=== PATIENT | female | born 1955 | race Caucasian/White ===

== ENCOUNTER 2018-12-11 11:27 | Observation (INO) | payer OTHER ==
[~2018-12-11] VITALS: Ht 154.9 cm; Wt 73.5 kg
[~2018-12-11 11:27] MED LIST: Adult Low Dose81 MG PO; INSULANPEN SC; METF500 PO; Novolog Fl100 UNIT/1 INJ; Novolog Fl100 UNIT/1 SC
[2018-12-11] MEDS ORDERED: LISI5 PO (12:04)
[2018-12-11] MEDS ORDERED: GLIP5 PO (12:04)
[2018-12-11 12:23] LABS: BASOPHILS ABSOLUTE AUTO 0.02 K/mm3 (0.00-0.23); BASOPHILS PERCENT AUTO 0 % (0-2); EOSINOPHILS ABSOLUTE AUTO 0.08 K/mm3 (0.00-0.68); EOSINOPHILS PERCENT AUTO 1 % (0-6); Hematocrit 39.9 % (33.0-51.0); Hemoglobin 12.9 g/dL (11.5-16.0); IMMATURE GRAN ABSOLUTE AUTO 0.03 K/mm3 (0.00-0.10); IMMATURE GRAN PERCENT AUTO 0 % (0-1); LYMPHOCYTES ABSOLUTE AUTO 3.54 K/mm3 (0.84-5.20); LYMPHOCYTES PERCENT AUTO 35 % (21-46); MONOCYTES PERCENT AUTO 3 % (4-13); Mean Corpuscular HGB 28.2 pg (26.0-34.0); Mean Corpuscular HGB Conc 32.3 g/dL (31.5-36.5); Mean Corpuscular Volume 87 fL (80-100); Mean Platelet Volume 9.1 fL (9.1-12.4); NEUTROPHILS ABSOLUTE AUTO 6.12 K/mm3 (1.96-9.15); NEUTROPHILS PERCENT AUTO 61 % (41-73); Platelet Count 378 K/mm3 (150-400); RDW Coefficient Variation 13.3 % (11.7-14.2); RDW Standard Deviation 42.4 fL (35.1-46.3); Red Blood Cell Count 4.57 M/mm3 (3.80-5.20); White Blood Cell Count 10.09 K/mm3 (4.00-11.30)
[2018-12-11 13:03] LABS: Alanine Aminotransfer (ALT/SGP 25 U/L (12-78); Albumin, Blood 4.1 g/dL (3.4-5.0); Alk Phos 71 U/L (50-136); Anion Gap 11 mmol/L (6-16); Aspartate Aminotrans (AST/SGOT 18 U/L (12-37); Bilirubin, Total 0.7 mg/dL (0.1-1.0); Blood Urea Nitrogen 18 mg/dL (8-24); Bun/Creatinine Ratio 24.3 (12.0-20.0); CO2, Blood 21 mmol/L (21-32); Calcium, Blood 9.2 mg/dL (8.5-10.1); Chloride, Blood 109 mmol/L (98-108); Creatinine, Blood 0.74 mg/dL (0.40-1.00); Glomerular Filtration Rate >60 (60-); Glucose, Blood 178 mg/dL (70-99); Potassium, Blood 3.8 mmol/L (3.5-5.5); Sodium, Blood 141 mmol/L (136-145); Total Protein, Blood 8.1 g/dL (6.4-8.2)
--- NOTE | 2018-12-11 17:10 | NUR ---
12/11/18 [id number] Sher[address] Wyatt History, Chart, Medications and Allergies reviewed before start of procedure.MONITOR INTACT WITH CONTINUOUS PULSE OXIMETRY AND INTERMITTENT BP.3-LEAD EKG REVIEWED WITH PHYSICIAN PRIOR TO START OF PROCEDURE.O2 VIA N/C INTACT THROUGHOUT SEDATION/PROCEDURE. Patient confirms NPO status and agrees with scheduled surgery.See Anesthesia record.
--- NOTE | 2018-12-11 17:59 | NUR ---
PT IS GOING TO BE ADMITTED SINCE PT STATES SHE CANNOT SWALLOW ANY LIQUIDS. DR CHATMAN HAS SEEN PT AND WANTS PT TO BE ADMITTED. PT WILL BE GOING TO 230. WAITING TO GIVE FLOOR RN REPORT. VSS. PT HAS NO COMPLAINTS AT THIS TIME.
--- NOTE | 2018-12-11 18:20 | NUR ---
REPORT GIVEN TO BRIGIDO TUCKER. SHE WILL ASSUME CARE OF PT.
--- NOTE | 2018-12-11 18:33 | NUR ---
REPORT FROM SHANIQUA TUCKER. PT SAT SELF UP IN BED TO DRINK WATER W/O DIFF. PT REPORT RADHA PAREKH RN SURG FLOOR. WILL TRANSPORT PT AND ALL BELONGIGNS WITH PT TO ROOM.
--- NOTE | 2018-12-11 18:34 | NUR ---
RN gave this student nurse permission to care for this patient tomorrow morning.
--- NOTE | 2018-12-11 22:33 | NUR ---
REPORT GIVEN TO NEXT RN. PT IS A&OX4. DENIES N/V. TOLERATED ICE WATER. ADVANCED TO CL BROTH; TOLERATED WELL. SHE DENIES PAIN AND REPORTS IMPROVEMENT IN SWALLOWING SINCE THIS MORNING. VSS.
--- NOTE | 2018-12-12 04:51 | NUR ---
DID WELL DURING NIGHT. DENIES ANY C/O. MAINTAINS AIRWAY, SWALLOWING WELL. IS UP AMBULATING INDEPENDENLTY. CONT IVF WITH IV PROTONIX. DR. CHATMAN STATES IN PROGRESS NOTE THAT PT WILL NEED REPEAT EGD IN 8-12 WEEKS WITH POSSIBLE DILATION AND REPEAT BIOPSIES. PROBABLE DC HOME TODAY, CALL LIGHT IN REACH.
--- NOTE | 2018-12-12 10:32 | NUR ---
DISCHARGE PT EDUCATED ON AND RECEIVED PRINTED DC INSTRUCTIONS. PT VERB AN UNDERSTANDING AND STATED SHE WOULD CALL DR. CHATMAN'S OFFICE FOR FOLLOW UP AND TO SCHEDULE REPEAT ENDOSCOPY. NO NEW RX. IV DC'D. PT GATHERING ALL PERSONAL BELONGINGS AND WAITING FOR TO COME PICK HER UP.
--- NOTE | 2018-12-12 10:54 | NUR ---
Spiritual care visit conducted. Patient was in the process of checking out as I entered the room. I introduced myself and patient welcomed me into the room. Patient said that "things" went well and that the doctors and nurses were wonderful and did an amazing job. Patient had no spiritual or emotional needs but appreciated the visit and the conversation.
== END 2018-12-12 11:01 | disposition home or self-care (01) ==
LOC: ER 11:27 → SURS 11:28
PROVIDERS: Emergency Medicine; ADMIT Internal Medicine
PROC: 0DB48ZX Excision of Esophagogastric Junction, Via Natural or Artificial Opening Endoscopic, Diagnostic (ICD-10-PCS; principal; 2018-12-12)
DX: K20.9 Esophagitis, unspecified (principal); K22.2 Esophageal obstruction; K25.9 Gastric ulcer, unspecified as acute or chronic, without hemorrhage or perforation; K29.80 Duodenitis without bleeding; R23.4 Changes in skin texture; I10 Essential (primary) hypertension; E04.1 Nontoxic single thyroid nodule; E11.9 Type 2 diabetes mellitus without complications; Z79.84 Long term (current) use of oral hypoglycemic drugs; Z79.82 Long term (current) use of aspirin
CPT/HCPCS: 36415; 70491; 80053; 82947; 84443; 85025; 88305; 88312; 96361; 96374; 96375; 99285-25; C9113; G0378; J1610; J2250; J2405; J7030; J7120; Q9967

== ENCOUNTER 2019-03-05 09:09 | Day surgery (SDC) | payer OTHER ==
[~2019-03-05] VITALS: Ht 154.9 cm; Wt 72.8 kg
[~2019-03-05 09:09] MED LIST changes: +ATOR10 PO; +GLIP10 PO; +GLIP5 PO; +GLIP5ER PO; +Glucophage1000 MG PO; +LISI5 PO; +OMEPRAZOLE MAGN20 MG PO
== END 2019-03-05 11:08 | disposition home or self-care (01) ==
LOC: ORSCSDS 09:09
PROVIDERS: Internal Medicine Gastroenterology
PROC: 0DB68ZX Excision of Stomach, Via Natural or Artificial Opening Endoscopic, Diagnostic (ICD-10-PCS; principal; 2019-03-05 11:00)
DX: K27.9 Peptic ulcer, site unspecified, unspecified as acute or chronic, without hemorrhage or perforation (principal); R13.10 Dysphagia, unspecified; K21.9 Gastro-esophageal reflux disease without esophagitis; K22.2 Esophageal obstruction; I10 Essential (primary) hypertension; K44.9 Diaphragmatic hernia without obstruction or gangrene; E11.9 Type 2 diabetes mellitus without complications; Z79.899 Other long term (current) drug therapy; Z79.82 Long term (current) use of aspirin
CPT/HCPCS: 82947; 88305; 88342; J2704; J7120

== ENCOUNTER 2019-05-18 20:27 | Emergency (ER) | payer OTHER, SELFPAY ==
[~2019-05-18] VITALS: Ht 154.9 cm; Wt 73.5 kg
[2019-05-18] MEDS ORDERED: CRUTCH2 XX (22:42)
[2019-06-24] MEDS ORDERED: Voltaren100 GM TOP (15:57)
[2019-06-24] MEDS ORDERED: ASPI81CH PO (15:58)
[2019-06-24] MEDS ORDERED: THERA1 EACH PO (15:58)
[2019-06-24] MEDS ORDERED: Vitamin C100 M1 PO (15:58)
== END 2019-05-18 22:58 | disposition home or self-care (01) ==
LOC: ER 20:27
DX: S82.831A Other fracture of upper and lower end of right fibula, initial encounter for closed fracture (principal); E11.40 Type 2 diabetes mellitus with diabetic neuropathy, unspecified; Z79.899 Other long term (current) drug therapy; W18.30XA Fall on same level, unspecified, initial encounter
CPT/HCPCS: 29515; 73610; 99283-25; A9270

== ENCOUNTER 2019-06-27 05:50 | Day surgery (SDC) | payer OTHER, SELFPAY ==
[~2019-06-27] VITALS: Ht 157.5 cm; Wt 70.8 kg
[~2019-06-27 05:50] MED LIST changes: +ASPI81CH PO; +CRUTCH2 XX; +THERA1 EACH PO; +Vitamin C100 M1 PO; +Voltaren100 GM TOP
--- NOTE | 2019-06-27 06:54 | NUR ---
Ambulatory in Day Surgery History, Chart, Medications and Allergies reviewed before start of procedure.Patient confirms NPO status and agrees with scheduled surgery. Patient reports completing Chlorhexadine shower X2 prior to admission to hospital.Surgical site prepped with 2% Chlorhexidine cloth wipe. Lungs clear T/O to Auscultation.
--- NOTE | 2019-06-27 08:49 | NUR ---
Discharge instructions reviewed with patient. Patient verbalizes understanding. Copy given to patient to take home. ICE PACK GIVEN FOR PT TO USE ON WRIST. PT STATES NO PAIN, AREA STILL NUMB, ABLE TO WIGGLE FINGERS, SLIGHT SWELLING. MICHAEL WRAP IN PLACE. RIDE HOME CALLED. Discharged via wheelchair to private car for ride home.
--- NOTE | 2019-06-28 16:43 | NUR ---
06/28/19 1643 Corinne Mckeon VERIFICATIONS.
== END 2019-06-27 22:44 | disposition home or self-care (01) ==
LOC: ORSCMMR 05:50 → ORD 07:30 → ORSCMMR 22:44
PROVIDERS: Orthopaedic Surgery
PROC: 0LN80ZZ Release Left Hand Tendon, Open Approach (ICD-10-PCS; principal; 2019-06-27 07:30)
DX: M65.332 Trigger finger, left middle finger (principal); I10 Essential (primary) hypertension; E11.9 Type 2 diabetes mellitus without complications; Z79.899 Other long term (current) drug therapy; Z79.82 Long term (current) use of aspirin
CPT/HCPCS: 82947; J0690; J1885; J2370; J2405; J2704; J3010; J7120

== ENCOUNTER 2020-02-22 11:24 | Emergency (ER) | payer MEDICARE ==
[~2020-02-22] VITALS: Ht 154.9 cm; Wt 68.0 kg
[2020-02-22 12:06] LABS: Source, Urine Clean Catch
[2020-02-22 12:10] LABS: Bilirubin, Urine Neg (Neg); Blood, Urine Neg (Neg); Glucose Qualitative, Urine Neg (Neg); Ketones, Urine 4+ (Neg); Leukocyte Esterase, Urine 1+ (Neg); Nitrite, Urine Neg (Neg); Protein, Urine 1+ (Neg); Specific Gravity, Urine 1.015 (1.003-1.022); Urobilinogen, Urine NORM (Normal)
[2020-02-22] MEDS ORDERED: OMEP20ER PO (12:11)
[2020-02-22 12:13] LABS: BASOPHILS ABSOLUTE AUTO 0.05 K/mm3 (0.00-0.23); BASOPHILS PERCENT AUTO 0 % (0-2); EOSINOPHILS ABSOLUTE AUTO 0.03 K/mm3 (0.00-0.68); EOSINOPHILS PERCENT AUTO 0 % (0-6); Hemoglobin 13.1 g/dL (11.5-16.0); IMMATURE GRAN ABSOLUTE AUTO 0.06 K/mm3 (0.00-0.10); IMMATURE GRAN PERCENT AUTO 0 % (0-1); LYMPHOCYTES PERCENT AUTO 25 % (21-46); MONOCYTES ABSOLUTE AUTO 0.34 K/mm3 (0.16-1.47); MONOCYTES PERCENT AUTO 2 % (4-13); Mean Corpuscular HGB 28.9 pg (26.0-34.0); Mean Corpuscular HGB Conc 33.6 g/dL (31.5-36.5); Mean Corpuscular Volume 86 fL (80-100); Mean Platelet Volume 9.2 fL (9.1-12.4); NEUTROPHILS ABSOLUTE AUTO 10.29 K/mm3 (1.96-9.15); NEUTROPHILS PERCENT AUTO 72 % (41-73); Platelet Count 415 K/mm3 (150-400); RDW Coefficient Variation 12.8 % (11.7-14.2); RDW Standard Deviation 40.6 fL (35.1-46.3); Red Blood Cell Count 4.53 M/mm3 (3.80-5.20); White Blood Cell Count 14.27 K/mm3 (4.00-11.30)
[2020-02-22 12:15] LABS: Appearance, Urine Clear (Clear); Color, Urine Yellow (P-Yellow)
[2020-02-22 12:20] LABS: Bacteria Few /hpf; Mucus Light (0-Heavy); Red Blood Cells, Urine 0-2 /hpf (0-2); Squamous Epithelial Cells Few /hpf (Few); White Blood Cells, Urine 0-2 /hpf (0-5)
[2020-02-22 12:34] LABS: Alanine Aminotransfer (ALT/SGP 22 U/L (12-78); Albumin, Blood 4.3 g/dL (3.4-5.0); Albumin/Globulin Ratio 1.1 (0.8-1.8); Alk Phos 79 U/L (50-136); Anion Gap 14 mmol/L (6-16); Aspartate Aminotrans (AST/SGOT 23 U/L (12-37); Bilirubin, Total 0.6 mg/dL (0.1-1.0); Blood Urea Nitrogen 15 mg/dL (8-24); CO2, Blood 19 mmol/L (21-32); Calcium, Blood 9.8 mg/dL (8.5-10.1); Chloride, Blood 107 mmol/L (98-108); Creatinine, Blood 0.71 mg/dL (0.40-1.00); Glomerular Filtration Rate >60 (60-); Glucose, Blood 230 mg/dL (70-99); Potassium, Blood 3.3 mmol/L (3.5-5.5); Sodium, Blood 140 mmol/L (136-145); Total Protein, Blood 8.3 g/dL (6.4-8.2)
[2020-02-22] MEDS ORDERED: ONDA4ODT MM (14:34)
== END 2020-02-22 14:42 | disposition home or self-care (01) ==
LOC: ER 11:24
PROVIDERS: Emergency Medicine
DX: K52.9 Noninfective gastroenteritis and colitis, unspecified (principal)
CPT/HCPCS: 36415; 80053; 81001; 83690; 85025; 87086; 93005; 93010; 96361; 96374; 99284-25; J2405; J7030

== ENCOUNTER 2020-10-06 10:22 | Emergency (ER) | payer MEDICARE ==
[~2020-10-06] VITALS: Ht 154.9 cm; Wt 68.0 kg
[~2020-10-06 10:22] MED LIST changes: +OMEP20ER PO; +ONDA4ODT MM
[2020-10-06] MEDS ORDERED: ATOR10 (11:01)
[2020-10-06 11:23] LABS: Base Excess Venous -5.2 mmol/L; Bicarbonate Venous 20.9 mmol/L (24.0-30.0); PCO2 Venous 28.4 mmHg (38-42); PO2 Venous 50.7 mmHg (38-42); pH Blood Venous 7.44 (7.34-7.37)
[2020-10-06 11:33] LABS: BASOPHILS ABSOLUTE AUTO 0.06 K/mm3 (0.00-0.23); BASOPHILS PERCENT AUTO 0 % (0-2); EOSINOPHILS ABSOLUTE AUTO 0.06 K/mm3 (0.00-0.68); EOSINOPHILS PERCENT AUTO 0 % (0-6); Hematocrit 36.9 % (33.0-51.0); Hemoglobin 12.1 g/dL (11.5-16.0); IMMATURE GRAN ABSOLUTE AUTO 0.05 K/mm3 (0.00-0.10); IMMATURE GRAN PERCENT AUTO 0 % (0-1); LYMPHOCYTES ABSOLUTE AUTO 2.52 K/mm3 (0.84-5.20); LYMPHOCYTES PERCENT AUTO 19 % (21-46); MONOCYTES ABSOLUTE AUTO 0.42 K/mm3 (0.16-1.47); MONOCYTES PERCENT AUTO 3 % (4-13); Mean Corpuscular HGB 28.8 pg (26.0-34.0); Mean Corpuscular HGB Conc 32.8 g/dL (31.5-36.5); Mean Corpuscular Volume 88 fL (80-100); Mean Platelet Volume 9.7 fL (9.1-12.4); NEUTROPHILS ABSOLUTE AUTO 10.49 K/mm3 (1.96-9.15); NEUTROPHILS PERCENT AUTO 77 % (41-73); Platelet Count 353 K/mm3 (150-400); RDW Coefficient Variation 13.2 % (11.7-14.2); RDW Standard Deviation 42.4 fL (35.1-46.3)
[2020-10-06 12:01] LABS: Alanine Aminotransfer (ALT/SGP 41 U/L (12-78); Albumin, Blood 4.1 g/dL (3.4-5.0); Albumin/Globulin Ratio 1.1 (0.8-1.8); Alk Phos 97 U/L (50-136); Anion Gap 13 mmol/L (6-16); Aspartate Aminotrans (AST/SGOT 39 U/L (12-37); Bilirubin, Total 1.4 mg/dL (0.1-1.0); Blood Urea Nitrogen 23 mg/dL (8-24); CO2, Blood 19 mmol/L (21-32); Calcium, Blood 9.6 mg/dL (8.5-10.1); Chloride, Blood 111 mmol/L (98-108); Creatinine, Blood 0.66 mg/dL (0.40-1.00); Globulin, Blood 3.8 g/dL (2.2-4.0); Glomerular Filtration Rate >60 (60-); Glucose, Blood 263 mg/dL (70-99); Potassium, Blood 3.3 mmol/L (3.5-5.5); Sodium, Blood 143 mmol/L (136-145); Total Protein, Blood 7.9 g/dL (6.4-8.2); Troponin I <0.015 ng/mL (0.000-0.040)
[2020-10-06] MEDS ORDERED: ONDA4ODT MM (13:30)
== END 2020-10-06 14:36 | disposition home or self-care (01) ==
LOC: ER 10:22
PROVIDERS: Emergency Medicine; Physician Assistant
DX: R11.2 Nausea with vomiting, unspecified (principal); R10.9 Unspecified abdominal pain; E86.0 Dehydration; Z20.828 Contact with and (suspected) exposure to other viral communicable diseases; Z79.899 Other long term (current) drug therapy; Z79.82 Long term (current) use of aspirin; Z79.84 Long term (current) use of oral hypoglycemic drugs
CPT/HCPCS: 36415; 71045; 80053; 82803; 82947; 84484; 85025; 93005; 93010; 96361; 96374; 99284-25; J2405; J7030; U0004

== ENCOUNTER 2021-02-15 08:42 | Emergency (ER) | payer MEDICARE ==
[~2021-02-15] VITALS: Ht 154.9 cm; Wt 68.0 kg
[~2021-02-15 08:42] MED LIST changes: +ATOR10
[2021-02-15 09:20] LABS: Source, Urine Clean Catch
[2021-02-15 09:29] LABS: BASOPHILS ABSOLUTE AUTO 0.05 K/mm3 (0.00-0.23); BASOPHILS PERCENT AUTO 0 % (0-2); EOSINOPHILS ABSOLUTE AUTO 0.05 K/mm3 (0.00-0.68); EOSINOPHILS PERCENT AUTO 0 % (0-6); Hematocrit 36.6 % (33.0-51.0); Hemoglobin 12.4 g/dL (11.5-16.0); IMMATURE GRAN ABSOLUTE AUTO 0.04 K/mm3 (0.00-0.10); IMMATURE GRAN PERCENT AUTO 0 % (0-1); LYMPHOCYTES PERCENT AUTO 21 % (21-46); MONOCYTES ABSOLUTE AUTO 0.31 K/mm3 (0.16-1.47); MONOCYTES PERCENT AUTO 3 % (4-13); Mean Corpuscular HGB 29.1 pg (26.0-34.0); Mean Corpuscular HGB Conc 33.9 g/dL (31.5-36.5); Mean Corpuscular Volume 86 fL (80-100); NEUTROPHILS ABSOLUTE AUTO 8.34 K/mm3 (1.96-9.15); NEUTROPHILS PERCENT AUTO 75 % (41-73); Platelet Count 319 K/mm3 (150-400); RDW Coefficient Variation 13.2 % (11.7-14.2); RDW Standard Deviation 41.3 fL (35.1-46.3); Red Blood Cell Count 4.26 M/mm3 (3.80-5.20); White Blood Cell Count 11.19 K/mm3 (4.00-11.30)
[2021-02-15 09:32] LABS: Appearance, Urine Hazy (Clear); Bilirubin, Urine Neg (Neg); Blood, Urine 1+ (Neg); Color, Urine Yellow (P-Yellow); Glucose Qualitative, Urine 3+ (Neg); Ketones, Urine 4+ (Neg); Leukocyte Esterase, Urine 3+ (Neg); Nitrite, Urine Pos (Neg); Protein, Urine 2+ (Neg); Urobilinogen, Urine NORM (Normal)
[2021-02-15 09:46] LABS: Alanine Aminotransfer (ALT/SGP 38 U/L (12-78); Albumin, Blood 4.1 g/dL (3.4-5.0); Albumin/Globulin Ratio 1.2 (0.8-1.8); Alk Phos 75 U/L (50-136); Anion Gap 15 mmol/L (6-16); Aspartate Aminotrans (AST/SGOT 23 U/L (12-37); Bilirubin, Total 0.9 mg/dL (0.1-1.0); Blood Urea Nitrogen 17 mg/dL (8-24); Bun/Creatinine Ratio 28.5 (12.0-20.0); CO2, Blood 19 mmol/L (21-32); Calcium, Blood 9.6 mg/dL (8.5-10.1); Chloride, Blood 108 mmol/L (98-108); Globulin, Blood 3.5 g/dL (2.2-4.0); Glomerular Filtration Rate >60 (60-); Glucose, Blood 282 mg/dL (70-99); Potassium, Blood 3.7 mmol/L (3.5-5.5); Sodium, Blood 142 mmol/L (136-145); Total Protein, Blood 7.6 g/dL (6.4-8.2)
[2021-02-15 09:49] LABS: Red Blood Cells, Urine 0-2 /hpf (0-2)
[2021-02-15 09:50] LABS: Bacteria Many /hpf; Squamous Epithelial Cells Mod /hpf (Few)
[2021-02-15] MEDS ORDERED: Macrobid 100 M100 MG PO (10:50)
[2021-02-15] MEDS ORDERED: METO5A PO (10:50)
[2021-02-15] MEDS ORDERED: Norco 5-325 Ta1 EACH PO (15:37)
== END 2021-02-15 11:01 | disposition home or self-care (01) ==
LOC: ER 08:42
PROVIDERS: Emergency Medicine
DX: N39.0 Urinary tract infection, site not specified (principal); R19.7 Diarrhea, unspecified; Z79.84 Long term (current) use of oral hypoglycemic drugs; Z79.82 Long term (current) use of aspirin
CPT/HCPCS: 36415; 74177; 80053; 81001; 83690; 85025; 87077; 87086; 87186; 96374-59; 96375; 99284-25; J1885; J2405; J2550; Q9967

== ENCOUNTER 2021-02-17 08:33 | Emergency (ER) | payer MEDICARE ==
[~2021-02-17] VITALS: Ht 154.9 cm; Wt 68.0 kg
[~2021-02-17 08:33] MED LIST changes: +METO5A PO; +Macrobid 100 M100 MG PO; +Norco 5-325 Ta1 EACH PO
[2021-02-17 09:45] LABS: BASOPHILS ABSOLUTE AUTO 0.03 K/mm3 (0.00-0.23); BASOPHILS PERCENT AUTO 0 % (0-2); EOSINOPHILS ABSOLUTE AUTO 0.01 K/mm3 (0.00-0.68); EOSINOPHILS PERCENT AUTO 0 % (0-6); Hemoglobin 12.8 g/dL (11.5-16.0); IMMATURE GRAN ABSOLUTE AUTO 0.03 K/mm3 (0.00-0.10); IMMATURE GRAN PERCENT AUTO 0 % (0-1); LYMPHOCYTES PERCENT AUTO 18 % (21-46); MONOCYTES ABSOLUTE AUTO 0.33 K/mm3 (0.16-1.47); MONOCYTES PERCENT AUTO 3 % (4-13); Mean Corpuscular HGB 29.2 pg (26.0-34.0); Mean Corpuscular HGB Conc 33.7 g/dL (31.5-36.5); Mean Corpuscular Volume 87 fL (80-100); Mean Platelet Volume 9.8 fL (9.1-12.4); NEUTROPHILS ABSOLUTE AUTO 7.56 K/mm3 (1.96-9.15); NEUTROPHILS PERCENT AUTO 78 % (41-73); Platelet Count 314 K/mm3 (150-400); RDW Coefficient Variation 13.2 % (11.7-14.2); RDW Standard Deviation 42.2 fL (35.1-46.3); Red Blood Cell Count 4.38 M/mm3 (3.80-5.20); White Blood Cell Count 9.66 K/mm3 (4.00-11.30)
[2021-02-17 09:46] LABS: Alanine Aminotransfer (ALT/SGP 40 U/L (12-78); Albumin, Blood 4.2 g/dL (3.4-5.0); Albumin/Globulin Ratio 1.1 (0.8-1.8); Alk Phos 76 U/L (50-136); Anion Gap 13 mmol/L (6-16); Aspartate Aminotrans (AST/SGOT 27 U/L (12-37); Bilirubin, Total 1.1 mg/dL (0.1-1.0); Blood Urea Nitrogen 21 mg/dL (8-24); Bun/Creatinine Ratio 33.2 (12.0-20.0); CO2, Blood 19 mmol/L (21-32); Calcium, Blood 9.8 mg/dL (8.5-10.1); Chloride, Blood 106 mmol/L (98-108); Creatinine, Blood 0.63 mg/dL (0.40-1.00); Globulin, Blood 3.7 g/dL (2.2-4.0); Glomerular Filtration Rate >60 (60-); Glucose, Blood 272 mg/dL (70-99); Potassium, Blood 3.8 mmol/L (3.5-5.5); Sodium, Blood 138 mmol/L (136-145); Total Protein, Blood 7.9 g/dL (6.4-8.2)
[2021-02-17 11:01] LABS: Magnesium, Blood 1.6 mg/dL (1.6-2.4); Thyroid Stimulating Hormone 2.1 uIU/mL (0.360-4.800)
[2021-02-17 12:16] LABS: Influenza A, PCR NEGATIVE (NEGATIVE); Influenza B, PCR NEGATIVE (NEGATIVE); Resp Syncytial Virus, PCR NEGATIVE (NEGATIVE); SARS-Cov-2 (COVID-19) PCR, MMC NEGATIVE (NEGATIVE)
[2021-02-17] MEDS ORDERED: ONDA4ODT SL ×2 (13:59→14:05)
[2021-02-17] MEDS ORDERED: PHENERGAN25 MG PR ×2 (14:00→14:05)
== END 2021-02-17 14:57 | disposition home or self-care (01) ==
LOC: ER 08:33
PROVIDERS: Emergency Medicine
DX: N39.0 Urinary tract infection, site not specified (principal); R19.7 Diarrhea, unspecified; E11.9 Type 2 diabetes mellitus without complications; Z79.899 Other long term (current) drug therapy; Z79.84 Long term (current) use of oral hypoglycemic drugs
CPT/HCPCS: 0241U; 36415; 80053; 83690; 83735; 84443; 84484; 85025; 93005; 93010; 96361; 96365; 96375; 99284-25; J0696; J1200; J2765; J7030; J7120

== ENCOUNTER → 2022-03-17 | Outpatient (CLI) | payer MEDICARE ==
[~2022-03-17] MED LIST changes: +ONDA4ODT SL; +PHENERGAN25 MG PR
== END | disposition home or self-care (01) ==
LOC: LAB SHORT 11:42 → LAB 11:42
DX: N39.0 Urinary tract infection, site not specified (principal)
CPT/HCPCS: 87077; 87086; 87186

== ENCOUNTER 2022-10-12 09:51 | Emergency (ER) | payer MEDICARE ==
[~2022-10-12] VITALS: Ht 154.9 cm; Wt 64.0 kg
[2022-10-12 11:23] LABS: BASOPHILS ABSOLUTE AUTO 0.02 K/mm3 (0.00-0.23); BASOPHILS PERCENT AUTO 0 % (0-2); EOSINOPHILS ABSOLUTE AUTO 0.07 K/mm3 (0.00-0.68); EOSINOPHILS PERCENT AUTO 1 % (0-6); Hematocrit 41.3 % (33.0-51.0); Hemoglobin 14.2 g/dL (11.5-16.0); IMMATURE GRAN ABSOLUTE AUTO 0.07 K/mm3 (0.00-0.10); IMMATURE GRAN PERCENT AUTO 1 % (0-1); LYMPHOCYTES ABSOLUTE AUTO 2.62 K/mm3 (0.84-5.20); LYMPHOCYTES PERCENT AUTO 17 % (21-46); MONOCYTES ABSOLUTE AUTO 0.82 K/mm3 (0.16-1.47); MONOCYTES PERCENT AUTO 5 % (4-13); Mean Corpuscular HGB 28.1 pg (26.0-34.0); Mean Corpuscular HGB Conc 34.4 g/dL (31.5-36.5); Mean Corpuscular Volume 82 fL (80-100); Mean Platelet Volume 9.6 fL (9.1-12.4); NEUTROPHILS ABSOLUTE AUTO 11.93 K/mm3 (1.96-9.15); NEUTROPHILS PERCENT AUTO 77 % (41-73); Platelet Count 394 K/mm3 (150-400); RDW Coefficient Variation 13.9 % (11.7-14.2); RDW Standard Deviation 41.2 fL (35.1-46.3); Red Blood Cell Count 5.06 M/mm3 (3.80-5.20); White Blood Cell Count 15.53 K/mm3 (4.00-11.30)
[2022-10-12 11:32] LABS: Albumin, Blood 4.3 g/dL (3.4-5.0); Bilirubin, Direct 0.4 mg/dL (0.0-0.3); Bilirubin, Total 1.4 mg/dL (0.1-1.0); Bun/Creatinine Ratio 39.9 (12.0-20.0); Calcium, Blood 10.1 mg/dL (8.5-10.1); Creatinine, Blood 0.73 mg/dL (0.40-1.00); Globulin, Blood 4.3 g/dL (2.2-4.0); Magnesium, Blood 1.9 mg/dL (1.6-2.4); Potassium, Blood 2.9 mmol/L (3.5-5.5); Total Protein, Blood 8.6 g/dL (6.4-8.2)
[2022-10-12 12:28] LABS: Influenza A, PCR NEGATIVE (NEGATIVE); Influenza B, PCR NEGATIVE (NEGATIVE); Resp Syncytial Virus, PCR NEGATIVE (NEGATIVE); SARS-Cov-2 (COVID-19) PCR, MMC NEGATIVE (NEGATIVE)
[2022-10-12] MEDS ORDERED: ONDA4ODT MM (14:16)
[2022-10-12 14:55] LABS: Source, Urine Clean Catch
[2022-10-12 15:00] LABS: Appearance, Urine Clear (Clear); Bilirubin, Urine Neg (Neg); Blood, Urine 1+ (Neg); Color, Urine Yellow (P-Yellow); Glucose Qualitative, Urine 2+ (Neg); Ketones, Urine 4+ (Neg); Leukocyte Esterase, Urine Neg (Neg); Nitrite, Urine Neg (Neg); Protein, Urine 1+ (Neg); Urobilinogen, Urine NORM (Normal)
[2022-10-12 15:24] LABS: White Blood Cells, Urine 0-2 /hpf (0-5)
[2022-10-12 15:25] LABS: Bacteria Rare /hpf; Hyaline Casts 0-2 /lpf (0-2); Squamous Epithelial Cells Few /hpf (Few)
== END 2022-10-12 15:22 | disposition home or self-care (01) ==
LOC: ER 09:51
PROVIDERS: Student in an Organized Health Care Education/Training Program
DX: R11.2 Nausea with vomiting, unspecified (principal); E87.6 Hypokalemia; E11.9 Type 2 diabetes mellitus without complications; Z79.82 Long term (current) use of aspirin; Z79.899 Other long term (current) drug therapy; Z79.84 Long term (current) use of oral hypoglycemic drugs
CPT/HCPCS: 0241U; 74177; 80048; 80076; 81001; 83690; 83735; 85025; 93005; 93010; A9270; J2405; J3475; J3480; J7030; J7050; J7120; Q9967

== ENCOUNTER 2023-07-18 14:53 | Emergency (ER) | payer OTHER ==
[~2023-07-18] VITALS: Ht 154.9 cm; Wt 61.2 kg
[2023-07-18 14:57] VITALS: BP 154/99
[2023-07-18 15:21] LABS: BASOPHILS ABSOLUTE AUTO 0.03 K/mm3 (0.00-0.23); BASOPHILS PERCENT AUTO 0 % (0-2); EOSINOPHILS ABSOLUTE AUTO 0.08 K/mm3 (0.00-0.68); EOSINOPHILS PERCENT AUTO 1 % (0-6); Hematocrit 40.4 % (33.0-51.0); Hemoglobin 13.8 g/dL (11.5-16.0); IMMATURE GRAN ABSOLUTE AUTO 0.02 K/mm3 (0.00-0.10); IMMATURE GRAN PERCENT AUTO 0 % (0-1); LYMPHOCYTES ABSOLUTE AUTO 4.99 K/mm3 (0.84-5.20); LYMPHOCYTES PERCENT AUTO 43 % (21-46); MONOCYTES ABSOLUTE AUTO 0.57 K/mm3 (0.16-1.47); MONOCYTES PERCENT AUTO 5 % (4-13); Mean Corpuscular HGB 28.4 pg (26.0-34.0); Mean Corpuscular HGB Conc 34.2 g/dL (31.5-36.5); Mean Corpuscular Volume 83 fL (80-100); Mean Platelet Volume 9.4 fL (9.1-12.4); NEUTROPHILS ABSOLUTE AUTO 5.96 K/mm3 (1.96-9.15); NEUTROPHILS PERCENT AUTO 51 % (41-73); Platelet Count 347 K/mm3 (150-400); RDW Coefficient Variation 13.8 % (11.7-14.2); RDW Standard Deviation 41.8 fL (35.1-46.3); Red Blood Cell Count 4.86 M/mm3 (3.80-5.20); White Blood Cell Count 11.65 K/mm3 (4.00-11.30)
[2023-07-18 15:38] LABS: Albumin, Blood 4.1 g/dL (3.4-5.0); Albumin/Globulin Ratio 1.1 (0.8-1.8); Bilirubin, Total 0.8 mg/dL (0.1-1.0); Bun/Creatinine Ratio 18.2 (12.0-20.0); Calcium, Blood 9.9 mg/dL (8.5-10.1); Creatinine, Blood 0.94 mg/dL (0.40-1.00); Globulin, Blood 3.8 g/dL (2.2-4.0); Potassium, Blood 3.8 mmol/L (3.5-5.5); Total Protein, Blood 7.9 g/dL (6.4-8.2)
[2023-07-18 15:47] LABS: Influenza A, PCR NEGATIVE (NEGATIVE); Influenza B, PCR NEGATIVE (NEGATIVE); Resp Syncytial Virus, PCR NEGATIVE (NEGATIVE); SARS-Cov-2 (COVID-19) PCR, MMC NEGATIVE (NEGATIVE)
[2023-07-18 15:48] LABS: Source, Urine Clean Catch
[2023-07-18 15:52] LABS: Appearance, Urine Hazy (Clear); Bilirubin, Urine Neg (Neg); Blood, Urine 1+ (Neg); Color, Urine Yellow (P-Yellow); Glucose Qualitative, Urine Neg (Neg); Ketones, Urine 2+ (Neg); Leukocyte Esterase, Urine 1+ (Neg); Nitrite, Urine Pos (Neg); Protein, Urine 1+ (Neg); Urobilinogen, Urine NORM (Normal)
[2023-07-18 16:02] LABS: Bacteria Many /hpf; Squamous Epithelial Cells Few /hpf (Few)
[2023-07-18] MEDS ORDERED: RYBELSUS3 MG PO (17:14)
[2023-07-18] MEDS ORDERED: CEPH500 PO (18:41)
== END 2023-07-18 18:53 | disposition home or self-care (01) ==
LOC: ER 14:53
PROVIDERS: Student in an Organized Health Care Education/Training Program
DX: E11.43 Type 2 diabetes mellitus with diabetic autonomic (poly)neuropathy (principal); K31.84 Gastroparesis; N39.0 Urinary tract infection, site not specified; Z79.84 Long term (current) use of oral hypoglycemic drugs; Z79.82 Long term (current) use of aspirin; Z79.899 Other long term (current) drug therapy; Z20.822 Contact with and (suspected) exposure to COVID-19
CPT/HCPCS: 0241U; 71046; 80053; 81001; 83690; 84484; 85025; 87077; 87086; 87186; 93005; 93010; 99284-25; A9270

== ENCOUNTER → 2024-06-03 | Outpatient (CLI) | payer OTHER ==
[~2024-06-03] MED LIST changes: +CEPH500 PO; +RYBELSUS3 MG PO
[2024-06-03 16:48] LABS: BASOPHILS ABSOLUTE AUTO 0.03 K/mm3 (0.00-0.23); BASOPHILS PERCENT AUTO 0 % (0-2); EOSINOPHILS ABSOLUTE AUTO 0.09 K/mm3 (0.00-0.68); EOSINOPHILS PERCENT AUTO 1 % (0-6); Hematocrit 36.7 % (33.0-51.0); Hemoglobin 12.1 g/dL (11.5-16.0); IMMATURE GRAN ABSOLUTE AUTO 0.02 K/mm3 (0.00-0.10); IMMATURE GRAN PERCENT AUTO 0 % (0-1); LYMPHOCYTES PERCENT AUTO 34 % (21-46); MONOCYTES ABSOLUTE AUTO 0.41 K/mm3 (0.16-1.47); MONOCYTES PERCENT AUTO 5 % (4-13); Mean Corpuscular HGB 28.5 pg (26.0-34.0); Mean Corpuscular Volume 87 fL (80-100); Mean Platelet Volume 10.4 fL (9.1-12.4); NEUTROPHILS ABSOLUTE AUTO 5.51 K/mm3 (1.96-9.15); NEUTROPHILS PERCENT AUTO 60 % (41-73); Platelet Count 294 K/mm3 (150-400); RDW Coefficient Variation 14.5 % (11.7-14.2); Red Blood Cell Count 4.24 M/mm3 (3.80-5.20); White Blood Cell Count 9.16 K/mm3 (4.00-11.30)
[2024-06-03 16:55] LABS: Alanine Aminotransfer (ALT/SGP 32 U/L (12-78); Albumin, Blood 3.8 g/dL (3.4-5.0); Albumin/Globulin Ratio 1.1 (0.8-1.8); Alk Phos 67 U/L (50-136); Anion Gap 11 mmol/L (3-11); Aspartate Aminotrans (AST/SGOT 26 U/L (12-37); Bilirubin, Total 0.5 mg/dL (0.1-1.0); Blood Urea Nitrogen 22 mg/dL (8-24); CHOL/HDL RATIO 2.1; CO2, Blood 22 mmol/L (21-32); Calcium, Blood 9.3 mg/dL (8.5-10.1); Chloride, Blood 109 mmol/L (98-108); Cholesterol 129 mg/dL (50-200); Globulin, Blood 3.5 g/dL (2.2-4.0); Glucose, Blood 125 mg/dL (70-99); HDL Cholesterol 61 mg/dL (>39); LDL/HDL RATIO 0.8; Low Density Lipoprotein Chol 47 mg/dL (0-110); Sodium, Blood 138 mmol/L (136-145); Total Protein, Blood 7.3 g/dL (6.4-8.2); Triglycerides 103 mg/dL (30-160); Very Low Density Lipoprot Chol 20 mg/dL (6-32)
[2024-06-03 16:56] LABS: Bun/Creatinine Ratio 29.1 (12.0-20.0); Creatinine, Blood 0.76 mg/dL (0.40-1.00); Glomerular Filtration Rate 85 (60-)
== END ==
LOC: LAB SHORT 10:06 → LAB 10:06
PROVIDERS: Nurse Practitioner Family
DX: E11.69 Type 2 diabetes mellitus with other specified complication (principal); E11.43 Type 2 diabetes mellitus with diabetic autonomic (poly)neuropathy; E11.59 Type 2 diabetes mellitus with other circulatory complications
CPT/HCPCS: 80053; 80061; 85025